=== PATIENT | male | born 1985 | race Caucasian/White ===

== ENCOUNTER 2018-08-05 15:39 | Emergency (ER) | payer MEDICAID ==
[2018-08-05 15:40] VITALS: BMI 26.6
--- NOTE | 2018-08-05 16:57 | C.PDOC ---
History Of Present Illness 33 year old male, with PMHx of psychiatric illness and is compliant with medication, is brought to the ED by ambulance for psychiatric evaluation. Patient's mother called the ambulance, stating that patient was verbalizing suicidal ideation. Patient denies this and states that he was sleeping and his mother is "crazy." Patient admits to smoking, alcohol use, and states he last used cocaine two days ago. Patient denies any physical complaints at this time. Time Seen by Provider: 08/05/18 15:56 Chief Complaint (Nursing): Psychiatric Evaluation History Per: Patient, Family History/Exam Limitations: no limitations Onset/Duration Of Symptoms: Hrs Current Symptoms Are (Timing): Gone Suicide/Self Injury Attempted (Context): None Associated Symptoms: Suicidal Thoughts Involuntary Hold By: None Recent travel outside of the [place]: No Additional History Per: Patient Past Medical History Reviewed: Historical Data, Nursing Documentation, Vital Signs - Medical History PMH: Anxiety, Post Traumatic Stress Disorder, Schizophrenia (per pts ) Surgical History: No Surg Hx - [facility] Procedures INJECT/INFUSE NEC (05/28/12) Family History: States: Unknown Family Hx - Social History Hx Tobacco Use: Yes Hx Alcohol Use: Yes Hx Substance Use: Yes ("[place]", history of crack cocaine use) - Immunization History Hx Influenza Vaccination: No Review Of Systems Psych: Positive for: Suicidal ideation Physical Exam - Physical Exam Appears: Non-toxic, No Acute Distress Skin: Normal Color, Warm, Dry Head: Atraumatic, Normacephalic Eye(s): bilateral: Normal Inspection Oral Mucosa: Moist Neck: Supple Chest: Symmetrical, No Deformity Cardiovascular: Rhythm Regular Respiratory: No Accessory Muscle Use Extremity: Normal ROM Neurological/Psych: Oriented x3, Normal Speech, Normal Cognition ED Course And Treatment Progress Note: Bloodwork and urinalysis ordered patient refused. Case discussed and patient evaluated by crisis telephone cleaner who reports that patient is not SI or HI and cleared for discharge. Patient discharged in stable condition Reassessment Condition: Unchanged Disposition Counseled Patient/Family Regarding: Need For Followup - Disposition Disposition: HOME/ ROUTINE Disposition Time: 17:30 Condition: STABLE Additional Instructions: Follow up with your PMD and therapist for further evaluation Instructions: Schizophrenia Forms: [employer] (Congolese) - POA Present On Arrival: None - Clinical Impression Clinical Impression: Schizophrenia - PA / PULP MIXER / Resident Statement MD/DO has reviewed & agrees with the documentation as recorded. - Scribe Statement The provider has reviewed the documentation as recorded by the Scribe (Narda Singleton) All medical record entries made by the Scribe were at my direction and personally dictated by me. I have reviewed the chart and agree that the record accurately reflects my personal performance of the history, physical exam, medical decision making, and the department course for this patient. I have also personally directed, reviewed, and agree with the discharge instructions and disposition.
[2018-08-05 17:23] VITALS: BP 134/78; PULSE 78; RESP 18; TEMP 98.5; O2SAT 100
== END 2018-08-05 17:31 | disposition home or self-care (01) ==
LOC: C.ER 15:39
DX: F20.9 Schizophrenia, unspecified (principal)